=== PATIENT | male | born 1990 | race Caucasian/White ===

== ENCOUNTER 2021-04-11 13:07 | Emergency (ER) | payer BC ==
[2021-04-11] MEDS ORDERED: DELSYM30 MG/5 ML PO (14:40)
[2021-04-11] MEDS ORDERED: MEDROL DOSEPAK 24 MG PO (14:40)
[2021-04-11] MEDS ORDERED: FLONASE 0.05% N16 GM (14:40)
== END 2021-04-11 14:43 | disposition home or self-care (01) ==
LOC: ER1 13:07
DX: U07.1 COVID-19 (principal); F17.200 Nicotine dependence, unspecified, uncomplicated
CPT/HCPCS: 99283; U0002